=== PATIENT | male | born 1980 | race Caucasian/White ===

== ENCOUNTER 2025-10-27 10:46 | Inpatient (IN) | payer MEDICAID ==
[~2025-10-27] VITALS: Ht 205.7 cm; Wt 143.3 kg
--- NOTE | 2025-10-27 12:38 | ED.PDOC ---
History of Present Illness HPI Comments A 45 YEAR OLD MALE PRESENTS TO THE ED WITH COMPLAINT OF WOUND RECHECK LEFT BKA STUMP WOUND. PATIENT STATES HE HAS A HISTORY OF A LEFT [id number] AMPUTATION DUE TO HIS HISTORY OF DIABETES AND BEGAN TO HAVE A WOUND WITH REDNESS, SWELLING, AND DRAINAGE IN THE AREA FOR THE LAST 5 DAYS. PATIENT IS REQUESTING THAT THIS WOUND BE RECHECKED HE IS CONCERNED IT MAY BE INFECTED. PATIENT DENIES FEVER, CHILLS, SHORTNESS OF BREATH, CHEST PAIN, ABDOMINAL PAIN, NAUSEA, VOMITING, HEADACHE, OR OTHER COMPLAINTS. NO OTHER SYMPTOMS OR MODIFYING FACTORS AT THIS TIME. PATIENT IS ALERT, ORIENTED X 4, AND HAS STEADY GAIT. Chief Complaint: Wound Check Time Seen by MD: 11:14 Reviewed Notes: Nurses Notes, Medications, Allergies Allergies: Coded Allergies: NO KNOWN ALLERGIES (Unverified , 06/13/25) Information Source: Patient Mode of Arrival: Ambulatory Severity: Moderate Timing: Days Duration: Since onset, Days Prehospital treatment: None Medication Refill: For: Other (LEFT BKA STUMP WOUND RECHECK) Past Medical History PAST MEDICAL HISTORY: DM, [place] Surgical History: BKA Family History Family History: Reviewed,noncontributory to illness Social History Smoker: Non-Smoker Alcohol: Denies ETOH Use Drugs: Denies Drug Use Lives In: Home Constitutional: denies: chills, diaphoresis, fatigue, fever, malaise, sweats, weakness, others EENTM: denies: blurred vision, double vision, ear bleeding, ear discharge, ear drainage, ear pain, ear ringing, eye pain, eye redness, hearing loss, mouth pain, mouth swelling, nasal discharge, nose bleeding, nose congestion, nose pain, photophobia, tearing, throat pain, throat swelling, voice changes, others Respiratory: denies: cough, hemoptysis, orthopnea, SOB at rest, shortness of breath, SOB with excertion, stridor, wheezing, others Cardiovascular: denies: chest pain, dizzy spells, diaphoresis, Dyspnea on exertion, edema, irregular heart beat, left arm pain, lightheadedness, palpitations, PND, syncope, others Gastrointestinal: denies: abdomen distended, abdominal pain, blood streaked bowels, constipated, diarrhea, dysphagia, difficulty swallowing, hematemesis, melena, nausea, poor appetite, poor fluid intake, rectal bleeding, rectal pain, vomiting, others Genitourinary: denies: burning, dysuria, flank pain, frequency, hematuria, incontinence, penile discharge, penile sore, pain, testicle pain, testicle swelling, urgency, others Neurological: denies: dizziness, fainting, headache, left sided numbness, left sided weakness, numbness, paresthesia, pre-existing deficit, right sided numbnes s, right sided weakness, seizure, speech problems, tingling, tremors, weakness, others Musculoskeletal: denies: back pain, gout, joint pain, joint swelling, muscle pain, muscle stiffness, neck pain, others Integumetry: reports: lesions, wounds (WOUND RECHECKED OF LEFT BKA STUMP); denies: bruises, change in color, change in hair/nails, dryness, laceration, lumps, rash, others Allergic/Immunocompromised: denies: Difficulty Healing, Frequent Infections, Hives, Itching, others Hematologic/Lymphatic: denies: anemia, blood clots, easy bleeding, easy bruising, swollen glands, others Endocrine: denies: excessive hunger, excessive sweating, excessive thirst, excessive urination, flushing, intolerance to cold, intolerance to heat, unexplained weight gain, unexplained weight loss, others Psychiatric: denies: anxiety, bipolar disorder, depression, hopeless, panic disorder, schizophrenia, sleepless, suicidal, others All Other Systems: Reviewed and Negative Physical Exam General Appearance: No Apparent Distress, Obese HEENT: Normal ENT Inspection, PERRL/EOMI, Pharynx Normal, TMs Normal Neck: Full Range of Motion, Non-Tender, Normal, Normal Inspection Respiratory: Chest Non-Tender, Lungs Clear, No Accessory Muscle Use, No Respiratory Distress, Normal Breath Sounds Cardiovascular: No Edema, No JVD, No Murmur, No Gallop, Normal Peripheral Pu lses, Regular Rate/Rhythm Breast Exam: Deferred Gastrointestinal: No Organomegaly, Non Tender, No Pulsatile Mass, Normal Bowel Sounds, Soft Genitalia: Deferred Pelvic: Deferred Rectal: Deferred Extremities: Decreased range of motion, No calf tenderness, Normal capillary refill, No pedal edema, Swelling (REDNESS, SWELLING, TENDERNESS, AND MILD YELLOW DRAINAGE ON LEFT BKA STUMP REGION.), Tender (AND SWELLING AND REDNESS ON LEFT STUMP REGION. 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 ) Peripheral Pulses: 2+ carotid (R), 2+ carotid (L), 2+ dorsalis pedis (R), 2+ dorsalis pedis (L) Lymphatic: No Adenopathy Was a procedure done? Was a procedure done?: No Differential Dx Considerations may include: WOUND INFECTION, CELLULITIS, ABSCESS, ERYSIPELAS, SOFT TISSUE INFECTION, WOUND RECHECK X-Ray, Labs, Meds, VS Vital Signs Date Time Temp Pulse Resp B/P (MAP) Pulse Ox O2 Delivery O2 Flow Rate FiO2 10/27/25 11:58 98 18 98 Room Air 10/27/25 11:58 98.2 98 18 101/55 (70) 98 98.2 10/27/25 10:47 97.2 98 18 101/55 98 97.2 Lab Test 10/27/25 12:27 Range/Units White Blood Count 6.8 4.4-10.8 10^3/uL Red Blood Count 3.10 L 4.5-5.90 10^6/uL Hemoglobin 8.8 L 13.5-17.5 g/dL Hematocrit 26.3 L 41.0-53.0 % Mean Corpuscular Volume 84.7 80.0-100.0 fL Mean Corpuscular Hemoglobin 28.4 28.0-32.0 pg Mean Corpuscular Hemoglobin Concent 33.5 32.0-36.0 g/dL Red Cell Distribution Width 15.0 H 11.8-14.3 % Platelet Count 465 H 140-450 10^3/uL Mean Platelet Volume 8.4 6.9-10.8 fL Neutrophils (%) (Auto) 68.5 37.0-80.0 % Lymphocytes (%) (Auto) 17.2 10.0-50.0 % Monocytes (%) (Auto) 9.6 0.0-12.0 % Eosinophils (%) (Auto) 4.0 0.0-7.0 % Basophils (%) (Auto) 0.7 0.0-2.0 % Neutrophils # (Auto) 4.6 1.6-8.6 10 ^3/uL Lymphocytes # (Auto) 1.2 0.4-5.4 10 ^3/uL Monocytes # (Auto) 0.6 0-1.3 10 ^3/uL Eosinophils # (Auto) 0.3 0-0.8 10 ^3/uL Basophils # (Auto) 0 0-0.2 10 ^3/uL Nucleated Red Blood Cells 0.0 % Sodium Level 133 L 136-145 mmol/L Potassium Level 5.3 H 3.5-5.1 mmol/L Chloride Level 101 98-107 mmol/L Carbon Dioxide Level 20 20-31 mmol/L Anion Gap 12 5-15 Blood Urea Nitrogen 25 H 9-23 mg/dL Creatinine 1.98 H 0.700-1.30 mg/dL Glomerular Filtration Rate Calc 41 >90 mL/min BUN/Creatinine Ratio 12.6 10.0-20.0 Serum Glucose 237 H 74-106 mg/dL Lactic Acid Level 2.0 0.4-2.0 mmol/L Calcium Level 9.2 8.7-10.4 mg/dL X-Ray, Labs, Meds, VS Comment EXTERNAL MEDICAL RECORDS REVIEWED: [NONE] INDEPENDENT HISTORIANS: [NONE] SOCIAL DETERMINANTS OF HEALTH: [NONE] LABS ORDERED: CBC, BMP, BLOOD CULTURE, LACTIC ACID W/REFLEX, WOUND CULTURE REVIEWED AND INTERPRETED RESULTS: GLUC 237, HGB 8.8, BUN 25, CREA2 1.98 IMAGING ORDERED: NONE TREATMENTS ORDERED: ROCEPHIN 1 G IV, CLINDAMYCIN 900 MG IV AND 0.9 NS 1L IV BOLUS PROCEDURES PERFORMED: NONE CRITICAL CARE TIME: NONE I HAVE DISCUSSED THE PATIENT WITH THE ATTENDING PHYSICIAN DR. ROBERTS AND HE AGREES WITH THE PATIENT'S PLAN OF CARE. UPON MY PHYSICAL EXAMINATION, THE PATIENT HAD REDNESS, SWELLING, AND DRAINAGE NOTED TO HIS LEFT BKA STUMP, CONSISTENT WITH WOUND INFECTION. DUE TO THE PATIENT'S MEDICAL HISTORY AND THE PATIENT'S CLINICAL EXAM FINDINGS, I HAVE DETERMINED THE PATIENT NEEDS TO BE ADMITTED FOR FURTHER TREATMENT AND EVALUATION. THE ON-CALL HOSPITALIST WILL BE CONTACTED FOR ADMISSION IN HIS PATIENT. Images Reviewed?: Images reviewed and evaluated by me Time of 1ST Reevaluation: 15:00 Reevaluation 1ST: Unchanged Patient Education/Counseling: Diagnosis, Treatment Family Education/Counseling: Diagnosis, Treatment SEPSIS Sepsis Screen Date sepsis recognized/suspect: Oct 27, 2025 Time Sepsis recognized/suspect: 1049 Recent Procedure: No On Antibiotic Therapy: No Respiratory Rate >20: No Heart Rate >90: Yes Temp<36 C (96.8 F) or >38.3 C: No SBP <90 or MAP <65 mmHG: No New Acute Mental Status Change: No Is the patient on CPAP, BIPAP,: No Physician Orders Wound Culture W/ Gs (10/27/25 12:06) Blood Culture (10/27/25 12:06) Heplock Iv (10/27/25 ) Clindamycin 900mg Iv (Cleocin Iv) (10/27/25 14:30) Sodium Chloride 0.9% (10/27/25 14:30) Ct L Femur With Wo Contrast (10/27/25 14:39) Vital Signs Date Time Temp Pulse Resp B/P (MAP) Pulse Ox O2 Delivery O2 Flow Rate FiO2 10/27/25 11:58 98 18 98 Room Air 10/27/25 11:58 98.2 98 18 101/55 (70) 98 98.2 10/27/25 10:47 97.2 98 18 101/55 98 97.2 Laboratory Tests Test 10/27/25 12:27 Lactic Acid Level 2.0 mmol/L (0.4-2.0) White Blood Count 6.8 10^3/uL (4.4-10.8) Departure 1 Departure Time of Disposition: 15:00 Impression: Primary Impression: Non-healing wound of amputation stump Additional Impression: Wound infection Disposition: 09 ADMITTED INPATIENT Condition: Serious Critical Care Note Critical Care Time?: No Stability Stability form required: No I personally scribed for LYNNETTE LAMAR ([email or web address]) on 10/27/25 at 12:38. Electronically submitted by Shaka Arthur (EDD). I personally scribed for LYNNETTE LAMAR ([email or web address]) on 10/27/25 at 14:21. Electronically submitted by Shaka Arthur (EDD). LYNNETTE LAMAR Oct 27, 2025 12:38
[2025-10-27 12:57] LABS: Hematocrit 26.3 % (41.0-53.0); Hemoglobin 8.8 g/dL (13.5-17.5); Mean Corpuscular Hemoglobin 28.4 pg (28.0-32.0); Mean Corpuscular Volume 84.7 fL (80.0-100.0); Nucleated Red Blood Cells % 0.0 %
[2025-10-27 13:04] LABS: Chloride 101 mmol/L (98-107)
[2025-10-27 13:05] LABS: Anion Gap 12 (5-15); Carbon Dioxide 20 mmol/L (20-31); Potassium 5.3 mmol/L (3.5-5.1); Sodium 133 mmol/L (136-145)
[2025-10-27 13:06] LABS: Calcium 9.2 mg/dL (8.7-10.4)
[2025-10-27 13:10] LABS: BUN/Creatinine Ratio 12.6 (10.0-20.0)
[2025-10-27 13:13] LABS: Blood Urea Nitrogen 25 mg/dL (9-23); Glucose 237 mg/dL (74-106)
[2025-10-27] MEDS: CLINDAMYCIN 900MG IV 50 ML IV ONE (14:30)
[2025-10-27] MEDS ORDERED: ACETAMINOPHEN 325 MG TAB PO PRN (14:45)
[2025-10-27] MEDS ORDERED: MORPHINE SULFATE INJ 2 MG/ml SYRG IV PRN (14:45)
[2025-10-27] MEDS ORDERED: HYDROcodone-ACET 5/325MG TAB PO PRN (14:45)
[2025-10-27] MEDS ORDERED: DEXTROSE (50%) 50ML SYRG IV PRN (14:45)
[2025-10-27] MEDS ORDERED: ONDANSETRON HCL 4 MG/2 ML VIAL IV PRN (14:45)
[2025-10-27] MEDS: SODIUM CHLORIDE 0.9% 1,000 ML IV ONE (15:45)
[2025-10-27] MEDS: IOHEXOL 300 MG/ML 100ML BOTTLE IJ ONE (15:51)
--- NOTE | 2025-10-27 15:58 | DVH ---
EXAM: CT LT LOWER EXTREMITY W CONTRAS INDICATION: left stump swelling TECHNIQUE: Axial images of left lower extremity with contrast have been obtained along with coronal and sagittal reformatted images. All CT scans at this facility use dose modulation, iterative reconstruction, and/or weight based dosing when appropriate to reduce radiation dose to as low as reasonably achievable. COMPARISON: XY L KNEE 2V XRAY on DOS: 10/19/25 FINDINGS: BONES: [id number] amputation area deep soft tissue ulceration along the posterior aspect of the distal stump with underlying phlegmon tracking to the osseous distal cortical surface of the distal stump. Question subsequent osseous erosion in the area of concern which may reflect osteomyelitis (series 607, image 106). Vascular calcifications. MUSCLES: Fat containing left inguinal hernia. Fatty atrophy along the proximal calf musculature. JOINT SPACES: Small left knee joint effusion. OTHER: Minimal circumferential bladder wall thickening. Likely reactive left inguinal lymph nodes. IMPRESSION: 1. Deep soft tissue ulceration along the posterior aspect of the distal stump with underlying phlegmon tracking to the osseous distal cortical surface of the distal stump. 2. Question subsequent osseous erosion in the area of concern which may reflect osteomyelitis.
[2025-10-27] MEDS: SODIUM ZIRCONIUM CYCL 10 GM PAK PO ONE (16:14)
--- NOTE | 2025-10-27 16:17 | DVHHP2 ---
History of Present Illness Reason for Visit: Swelling History of Present Illness 45-year-old male presents for evaluation of left lower extremity stump swelling with open wound. Patient reports noticing the wound initially five days ago with increased redness and swelling. Denies any fever or chills. No other acute complaints. Past Medical History Hypertension, chronic kidney disease, diabetes mellitus Past Surgical History Left BKA Family History Noncontributory Smoke: No ALCOHOL: none Drugs: None Lives: with Family Review of Systems Review of Systems Review of systems are currently negative addressed in HPI. Chest x-ray Allergies: Coded Allergies: NO KNOWN ALLERGIES (Unverified , 06/13/25) Medications Current Medications Medications Dose Ordered Sig/Danilo Route Start Time Stop Time Status Last Admin Dose Admin Clindamycin Phosphate 50 ml @ 50 mls/hr Q8HR IV 10/27/25 22:00 Atorvastatin Calcium 40 mg HS PO 10/27/25 22:00 Carvedilol 6.25 mg Q12HR PO 10/27/25 22:00 Ticagrelor 90 mg BID PO 10/27/25 22:00 Gabapentin 400 mg BID PO 10/27/25 22:00 Nifedipine 90 mg DAILY PO 10/28/25 10:00 Diagnostic Test (Pha) 1 strip ACHS 10/27/25 17:00 Insulin Human Regular ACHS SC 10/27/25 17:00 Dextrose 50 ml UD PRN IV 10/27/25 14:45 Acetaminophen/ Hydrocodone Bitart 1 tab Q4HP PRN PO 10/27/25 14:45 Ondansetron HCl 4 mg Q4HP PRN IV 10/27/25 14:45 Acetaminophen 650 mg Q6HP PRN PO 10/27/25 14:45 Morphine Sulfate 2 mg Q6HPRN PRN IV 10/27/25 14:45 Exam Vital Signs Vital Signs Date Time Temp Pulse Resp B/P (MAP) Pulse Ox O2 Delivery O2 Flow Rate FiO2 10/27/25 15:01 98.7 94 16 107/70 (82) 97 98.7 10/27/25 11:58 Room Air Labs/Xrays Labs Test 10/27/25 12:27 Range/Units White Blood Count 6.8 4.4-10.8 10^3/uL Red Blood Count 3.10 L 4.5-5.90 10^6/uL Hemoglobin 8.8 L 13.5-17.5 g/dL Hematocrit 26.3 L 41.0-53.0 % Mean Corpuscular Volume 84.7 80.0-100.0 fL Mean Corpuscular Hemoglobin 28.4 28.0-32.0 pg Mean Corpuscular Hemoglobin Concent 33.5 32.0-36.0 g/dL Red Cell Distribution Width 15.0 H 11.8-14.3 % Platelet Count 465 H 140-450 10^3/uL Mean Platelet Volume 8.4 6.9-10.8 fL Neutrophils (%) (Auto) 68.5 37.0-80.0 % Lymphocytes (%) (Auto) 17.2 10.0-50.0 % Monocytes (%) (Auto) 9.6 0.0-12.0 % Eosinophils (%) (Auto) 4.0 0.0-7.0 % Basophils (%) (Auto) 0.7 0.0-2.0 % Neutrophils # (Auto) 4.6 1.6-8.6 10 ^3/uL Lymphocytes # (Auto) 1.2 0.4-5.4 10 ^3/uL Monocytes # (Auto) 0.6 0-1.3 10 ^3/uL Eosinophils # (Auto) 0.3 0-0.8 10 ^3/uL Basophils # (Auto) 0 0-0.2 10 ^3/uL Nucleated Red Blood Cells 0.0 % Sodium Level 133 L 136-145 mmol/L Potassium Level 5.3 H 3.5-5.1 mmol/L Chloride Level 101 98-107 mmol/L Carbon Dioxide Level 20 20-31 mmol/L Anion Gap 12 5-15 Blood Urea Nitrogen 25 H 9-23 mg/dL Creatinine 1.98 H 0.700-1.30 mg/dL Glomerular Filtration Rate Calc 41 >90 mL/min BUN/Creatinine Ratio 12.6 10.0-20.0 Serum Glucose 237 H 74-106 mg/dL Lactic Acid Level 2.0 0.4-2.0 mmol/L Calcium Level 9.2 8.7-10.4 mg/dL SEPSIS Sepsis Screen Date sepsis recognized/suspect: Oct 27, 2025 Time Sepsis recognized/suspect: 1049 Recent Procedure: No On Antibiotic Therapy: No Respiratory Rate >20: No Heart Rate >90: Yes Temp<36 C (96.8 F) or >38.3 C: No SBP <90 or MAP <65 mmHG: No New Acute Mental Status Change: No Is the patient on CPAP, BIPAP,: No Physician Orders Wound Culture W/ Gs (10/27/25 12:06) Blood Culture (10/27/25 12:06) Heplock Iv (10/27/25 ) Clindamycin 600mg Iv (Cleocin Iv) (10/27/25 22:00) Atorvastatin (Lipitor) (10/27/25 22:00) Carvedilol Tablet (Coreg Tablet) (10/27/25 22:00) Ticagrelor (Brilinta) (10/27/25 22:00) Gabapentin Capsule (Neurontin Capsule) (10/27/25 22:00) Nifedipine Er (Procardia Xl (Time-Releas (10/28/25 10:00) Consistent Carb(Ccho)Diabetes (10/27/25 Dinner) Basic Metabolic Panel (10/28/25 04:00) Glucose Blood (Accu-Chek Comfort Curve T (10/27/25 17:00) Insulin R (Human) (Insulin R) (10/27/25 17:00) Dextrose 50% Syringe (10/27/25 14:45) Admit (10/27/25 14:42) Hydrocodone-Acet 5/325mg Tab ([place] 5/32 (10/27/25 14:45) Ondansetron Hcl (Zofran) (10/27/25 14:45) Complete Blood Count (10/28/25 04:00) Condition: Stable (10/27/25 14:42) Acetaminophen Tablet (Tylenol Tablet) (10/27/25 14:45) Bedrest With Bathroom Privileg (10/27/25 14:42) Morphine Sulfate Injection (10/27/25 14:45) Lt Lower Extremity W Contras (10/27/25 14:39) Ceftriaxone Ivpb Rocephin (10/28/25 09:00) * Orthopedic Consult (10/27/25 16:12) Vital Signs Date Time Temp Pulse Resp B/P (MAP) Pulse Ox O2 Delivery O2 Flow Rate FiO2 10/27/25 15:01 98.7 94 16 107/70 (82) 97 98.7 10/27/25 11:58 98 18 98 Room Air 10/27/25 11:58 98.2 98 18 101/55 (70) 98 98.2 10/27/25 10:47 97.2 98 18 101/55 98 97.2 Laboratory Tests Test 10/27/25 12:27 Lactic Acid Level 2.0 mmol/L (0.4-2.0) White Blood Count 6.8 10^3/uL (4.4-10.8) Medications Medications Dose Ordered Sig/Danilo Route Start Time Stop Time Status Last Admin Dose Admin Sodium Chloride 1,000 ml @ 1,000 mls/hr Q1H ONCE IV 10/27/25 14:30 10/27/25 15:29 DC 10/27/25 15:45 1,000 MLS/HR Assessment/Plan Assessment/Plan Assessment Left stump cellulitis Rule out osteomyelitis Diabetes mellitus Chronic kidney disease Hypertension Plan Admit the patient to [facility] [place] Rocephin/clindamycin Orthopedic consultation CT of the left stump pending Resume home medication Pain management Continue treatment per orders. Plan discussed with: Patient My Orders Orders - KACY POTTERCNDaisha Procedure Category Date Status Time Clindamycin 600mg Iv PHA 10/27/25 In Process (Cleocin Iv) 22:00 Atorvastatin (Lipitor) PHA 10/27/25 In Process 22:00 Carvedilol Tablet PHA 10/27/25 In Process (Coreg Tablet) 22:00 Ticagrelor (Brilinta) PHA 10/27/25 In Process 22:00 Gabapentin Capsule PHA 10/27/25 In Process (Neurontin Capsule) 22:00 Nifedipine Er PHA 10/28/25 In Process (Procardia Xl 10:00 Consistent DIET 10/27/25 Transmitted Carb(Ccho)Diabetes Dinner Basic Metabolic Panel LAB 10/28/25 Verified 04:00 Glucose Blood PHA 10/27/25 In Process (Accu-Chek Comfort 17:00 Insulin R (Human) PHA 10/27/25 In Process (Insulin R) 17:00 Dextrose 50% Syringe PHA 10/27/25 In Process 14:45 Admit ADMIT 10/27/25 Transmitted 14:42 Hydrocodone-Acet PHA 10/27/25 In Process 5/325mg Tab ([place] 14:45 Ondansetron Hcl PHA 10/27/25 In Process (Zofran) 14:45 Complete Blood Count LAB 10/28/25 Verified 04:00 Condition: Stable JAY 10/27/25 In Process 14:42 Acetaminophen Tablet PHA 10/27/25 In Process (Tylenol Tablet) 14:45 Bedrest With Bathroom JAY 10/27/25 In Process Privileg 14:42 Morphine Sulfate PHA 10/27/25 In Process Injection 14:45 Lt Lower Extremity W CT 10/27/25 Resulted Contras 14:39 Ceftriaxone Ivpb PHA 10/28/25 Verified Rocephin 09:00 * Orthopedic Consult CONS 10/27/25 Verified 16:12 Date of Service: Oct 27, 2025 Billing Provider: KACY POTTER Common Visit Codes: [id number] INP/OBS CARE (MOD) KACY POTTER Oct 27, 2025 16:17
[2025-10-27 16:42] VITALS: BP 125/78; PULSE 102; RESP 20; TEMP 98.3; O2SAT 99
[2025-10-27] MEDS: ACCU-CHEK COMFORT CURVE STRIP VI SCH (17:00)
[2025-10-27] MEDS: MORPHINE SULFATE 4 MG/ML SYR/VIAL IV PRN (17:30)
[2025-10-27] MEDS: InsuLIN REG 1unit/0.01ml Soln (100units/ml) SC SCH (18:05)
[2025-10-27 20:00] VITALS: RESP 19
[2025-10-27 21:00] VITALS: BP 117/86; PULSE 100; RESP 18; TEMP 98.3; O2SAT 98
[2025-10-27] MEDS: CARVEDILOL 3.125 MG TAB PO SCH (21:33)
[2025-10-27] MEDS: ATORVASTATIN 20 MG TAB PO SCH (21:33)
[2025-10-27] MEDS: TICAGRELOR 90 MG TAB PO SCH (21:33)
[2025-10-27] MEDS: CLINDAMYCIN 600MG IV 50 ML IV SCH (21:33)
[2025-10-27] MEDS: GABAPENTIN 400 MG CAP PO SCH (21:33)
[2025-10-27] MEDS: KETOROLAC TROMETH 30 MG/ML 1ML VIAL IV ONE (22:18)
[2025-10-28] VITALS (8 sets, daily range): BP systolic 115–156; BP diastolic 76–94; PULSE 72–103; RESP 15–19; TEMP 98.1–99.8; O2SAT 94–99
[2025-10-28 07:15] LABS: Chloride 104 mmol/L (98-107); Hematocrit 25.9 % (41.0-53.0); Hemoglobin 8.5 g/dL (13.5-17.5); Mean Corpuscular Hemoglobin 27.8 pg (28.0-32.0); Mean Corpuscular Volume 84.1 fL (80.0-100.0); Nucleated Red Blood Cells % 0.1 %; Potassium 4.6 mmol/L (3.5-5.1); Sodium 137 mmol/L (136-145)
[2025-10-28 07:16] LABS: Anion Gap 13 (5-15); Calcium 9.0 mg/dL (8.7-10.4)
[2025-10-28 07:19] LABS: Carbon Dioxide 20 mmol/L (20-31)
[2025-10-28 07:21] LABS: BUN/Creatinine Ratio 12.8 (10.0-20.0); Blood Urea Nitrogen 19 mg/dL (9-23)
[2025-10-28 07:22] LABS: Glucose 229 mg/dL (74-106)
--- NOTE | 2025-10-28 12:44 | DVHINCON2 ---
Date of service: Oct 28, 2025 History of Present Illness 45-year-old male with a history of diabetes status post left BKA with chronic recurrent infections of the stump admitted secondary to worsening redness and swelling. Patient reports significant decrease in his swelling of the leg and currently denies any pain in the area. Past Medical History Diabetes. Hypertension. Chronic kidney disease. Past Surgical History Left BKA Family History: FH: multiple sclerosis G8 MOTHER Family History Noncontributory Social History Denies alcohol, tobacco, IV drug use Allergies: Coded Allergies: NO KNOWN ALLERGIES (Unverified , 06/13/25) Current Medications Current Medications Medications (Trade) Dose Ordered Sig/Danilo Route PRN Reason Start Time Stop Time Status Last Admin Clindamycin Phosphate 50 ml @ 50 mls/hr Q8HR IV 10/27/25 22:00 10/28/25 05:43 Atorvastatin Calcium (Lipitor) 40 mg HS PO 10/27/25 22:00 10/27/25 21:33 Carvedilol (Coreg Tablet) 6.25 mg Q12HR PO 10/27/25 22:00 10/28/25 10:47 Ticagrelor (Brilinta) 90 mg BID PO 10/27/25 22:00 10/28/25 10:46 Gabapentin (Neurontin Capsule) 400 mg BID PO 10/27/25 22:00 10/28/25 10:48 Nifedipine (Procardia Xl (Time-Release)) 90 mg DAILY PO 10/28/25 10:00 10/28/25 10:48 Diagnostic Test (Pha) (Accu-Chek Comfort Curve T) 1 strip ACHS 10/27/25 17:00 10/28/25 12:02 Insulin Human Regular (InsuLIN R) ACHS SC 10/27/25 17:00 10/28/25 12:02 Dextrose 50 ml UD PRN IV Blood Sugar LESS THAN 60 10/27/25 14:45 Acetaminophen/ Hydrocodone Bitart ([place] 5/325MG Tab) 1 tab Q4HP PRN PO MODERATE PAIN (4-6 PAIN SCALE) 10/27/25 14:45 Ondansetron HCl (Zofran) 4 mg Q4HP PRN IV NAUSEA / VOMITING 10/27/25 14:45 Acetaminophen (Tylenol Tablet) 650 mg Q6HP PRN PO PAIN SCALE 1-3 OR TEMP>100.4 10/27/25 14:45 Morphine Sulfate 2 mg Q6HPRN PRN IV SEVERE PAIN (7-10 PAIN SCALE) 10/27/25 14:45 10/27/25 17:19 DC Ceftriaxone Sodium 50 ml @ 100 mls/hr DAILY@09 IV 10/28/25 09:00 10/28/25 10:48 Morphine Sulfate 2 mg Q6HPRN PRN IV SEVERE PAIN (7-10 PAIN SCALE) 10/27/25 17:30 10/28/25 12:04 Vital Signs Vital Signs Date Time Temp Pulse Resp B/P (MAP) Pulse Ox O2 Delivery O2 Flow Rate FiO2 10/28/25 12:28 98.5 102 19 154/85 (108) 97 98.5 10/28/25 08:00 Room Air* 0 21 Physical Exam GEN: Age-appropriate male in no acute distress. Alert. HEENT: Normocephalic atraumatic. Moist mucous membranes. Anicteric sclerae. CV: RRR Respiratory: CTAB ABD: Soft. Nontender nondistended Left BKA stump: There is a small 1 cm eschar at the tip of the BKA stump without erythema or fluctuance or drainage. Nontender. CT of the left lower extremity: Deep soft tissue ulceration along the posterior aspect of the distal stump with underlying phlegmon tracking to the osseous distal cortical surface of the distal stump. Possible osteomyelitis. Labs/Diagnostic Data Labs Test 10/28/25 11:46 10/28/25 06:20 10/27/25 12:27 Range/Units POC Glucose 222 H 70-106 mg/dl White Blood Count 6.1 4.4-10.8 10^3/uL Red Blood Count 3.07 L 4.5-5.90 10^6/uL Hemoglobin 8.5 L 13.5-17.5 g/dL Hematocrit 25.9 L 41.0-53.0 % Mean Corpuscular Volume 84.1 80.0-100.0 fL Mean Corpuscular Hemoglobin 27.8 L 28.0-32.0 pg Mean Corpuscular Hemoglobin Concent 33.0 32.0-36.0 g/dL Red Cell Distribution Width 15.0 H 11.8-14.3 % Platelet Count 387 140-450 10^3/uL Mean Platelet Volume 8.1 6.9-10.8 fL Neutrophils (%) (Auto) 65.3 37.0-80.0 % Lymphocytes (%) (Auto) 20.0 10.0-50.0 % Monocytes (%) (Auto) 9.9 0.0-12.0 % Eosinophils (%) (Auto) 4.1 0.0-7.0 % Basophils (%) (Auto) 0.7 0.0-2.0 % Neutrophils # (Auto) 4.0 1.6-8.6 10 ^3/uL Lymphocytes # (Auto) 1.2 0.4-5.4 10 ^3/uL Monocytes # (Auto) 0.6 0-1.3 10 ^3/uL Eosinophils # (Auto) 0.2 0-0.8 10 ^3/uL Basophils # (Auto) 0 0-0.2 10 ^3/uL Nucleated Red Blood Cells 0.1 % Sodium Level 137 136-145 mmol/L Potassium Level 4.6 3.5-5.1 mmol/L Chloride Level 104 98-107 mmol/L Carbon Dioxide Level 20 20-31 mmol/L Anion Gap 13 5-15 Blood Urea Nitrogen 19 9-23 mg/dL Creatinine 1.48 H 0.700-1.30 mg/dL Glomerular Filtration Rate Calc 59 >90 mL/min BUN/Creatinine Ratio 12.8 10.0-20.0 Serum Glucose 229 H 74-106 mg/dL Hemoglobin A1c 8.4 H <5.7 % A1C Calcium Level 9.0 8.7-10.4 mg/dL Lactic Acid Level 2.0 0.4-2.0 mmol/L Microbiology Date/Time Source Procedure Growth Status 10/27/25 00:00 Knee Left Gram Stain - Final Resulted 10/27/25 00:00 Knee Left Wound Culture - Preliminary Resulted Assessment 1. Left BKA stump improving on antibiotics without drainable abscess Plan/Recommendation 1. Patient is showing clinical improvement. I recommend continuing with antibiotics at this time. No indication for surgical drainage at this time. Plan discussed with: Patient FRANKLIN BENSON MD Oct 28, 2025 12:44
--- NOTE | 2025-10-28 15:59 | DVHPNRES ---
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 And denies any recent history of fall ,trauma or MVA. Denies any fever, cough, SOB, headache, dyspnea, abdominal pain, dysuria or any focal weakness. Wheelchair and occasional walker for ambulation at home. Past medical history: As above Surgical history: Left BKA 2069 Family history: Nothing contributory Personal history: Denies any EtOH or alcohol use Allergy: No known allergy PCP: Dr. Betancourt. Patient seen and examined at bedside today Patient denies any acute distress Surgery consult appreciated. Objective vital signs Vital Sign Date Time Temp Pulse Resp B/P (MAP) Pulse Ox O2 Delivery O2 Flow Rate FiO2 10/28/25 12:28 98.5 102 19 154/85 (108) 97 98.5 10/28/25 08:00 Room Air* 0 21 Total Intake and Output 10/27/25 10/27/25 10/28/25 15:00 23:00 07:00 Intake Total 0 ml 1200 ml Output Total 2175 ml Balance 0 ml -975 ml medications Current Medications Medications Dose Ordered Sig/Danilo Route Start Time Stop Time Status Last Admin Dose Admin Clindamycin Phosphate 50 ml @ 50 mls/hr Q8HR IV 10/27/25 22:00 10/28/25 13:23 50 MLS/HR Atorvastatin Calcium 40 mg HS PO 10/27/25 22:00 10/27/25 21:33 40 MG Carvedilol 6.25 mg Q12HR PO 10/27/25 22:00 10/28/25 10:47 6.25 MG Ticagrelor 90 mg BID PO 10/27/25 22:00 10/28/25 10:46 90 MG Gabapentin 400 mg BID PO 10/27/25 22:00 10/28/25 10:48 400 MG Nifedipine 90 mg DAILY PO 10/28/25 10:00 10/28/25 10:48 90 MG Diagnostic Test (Pha) 1 strip ACHS 10/27/25 17:00 10/28/25 12:02 1 STRIP Insulin Human Regular ACHS SC 10/27/25 17:00 10/28/25 12:02 4 UNITS Dextrose 50 ml UD PRN IV 10/27/25 14:45 Acetaminophen/ Hydrocodone Bitart 1 tab Q4HP PRN PO 10/27/25 14:45 Ondansetron HCl 4 mg Q4HP PRN IV 10/27/25 14:45 Acetaminophen 650 mg Q6HP PRN PO 10/27/25 14:45 Ceftriaxone Sodium 50 ml @ 100 mls/hr DAILY@09 IV 10/28/25 09:00 10/28/25 10:48 100 MLS/HR Morphine Sulfate 2 mg Q6HPRN PRN IV 10/27/25 17:30 10/28/25 12:04 2 MG Examination GEN: Age-appropriate male in no acute distress. Alert. HEENT: Normocephalic atraumatic. Moist mucous membranes. Anicteric sclerae. CV: RRR Respiratory: CTAB ABD: Soft. Nontender nondistended Left BKA stump: There is a approximately 1.5 cm eschar at the tip of the left BKA stump without fluctuance or drainage. laboratory and microbiology Laboratory Tests 10/28/25 06:20 Test 10/28/25 06:20 Range/Units Serum Glucose 229 H 74-106 mg/dL Microbiology Date/Time Source Procedure Growth Status 10/27/25 12:36 Blood Blood Culture - Preliminary NO GROWTH AFTER 24 HOURS OF INCUBATION. Resulted 10/27/25 00:00 Knee Left Gram Stain - Final Resulted 10/27/25 00:00 Knee Left Wound Culture - Preliminary Resulted Problem List/Assessment/Plan Problem List/Assessment/Plan Left BKA stump cellulitis Rule out osteomyelitis History of Charcot joint status post left BKA Lactic acid 2.0 Blood culture preliminary [id number] x 2 shows no growth Wound Culture preliminary left BKA stump: Gram-positive cocci in pair and chain-Staphylococcus aureus Started empiric antibiotic ceftriaxone and clindamycin Monitor labs Pain management Surgery consult appreciated and recommended continue antibiotic no surgical intervention at this time. Type 2 diabetes mellitus with hyperglycemia Diabetes mellitus with neuropathy Hyperlipidemia with diabetes Gabapentin Atorvastatin Hemoglobin A1c 8.4 Basal bolus insulin Insulin sliding scale Monitor blood sugar MARILYNN and CKD likely vasomotor nephropathy Hypertensive heart disease with possible systolic/diastolic heart failure Questionable coronary artery disease Blood pressure control targeted less than 130/80 Ticagrelor Nifedipine Losartan Carvedilol Hyponatremia Hyperkalemia Avoid nephrotoxic drugs IVF BMP Anemia of chronic disease Hemoglobin 8.5, HCT 25.9, MCV 84.1, RDW 15.0 No active signs symptoms of bleeding Possible major depressive disorder Sertraline Thrombocytosis likely hemoconcentration/reactive Initial CBC history of platelet 465 CBC Diet: Carbohydrate consistent DVT prophylaxis: Heparin Goals of care discussed. 21 minute spent with patient. Code status. Case discussed with Dr. Brown Plan discussed with: Patient, Other (Nurse) Visit Coding STANDARD RES Billing Provider: MIGEL BROWN MD Date of Service if different f: Oct 28, 2025 Common Visit Codes: [id number] INP/OBS CARE(HIGH) OLYA MCGOWAN RESIDENT Oct 28, 2025 15:59 MIGEL BROWN MD Nov 07, 2025 10:22
[2025-10-28] MEDS: LOSARTAN POTASSIUM 50 MG TAB PO ONE (17:13)
[2025-10-28] MEDS: INSULIN LISPRO (HUMAN) 100 UNITS/ML ML SC SCH (17:13)
[2025-10-28] MEDS: INSULIN LANTUS (GLARGINE) 1 /0.01ml (100units/ml) SC SCH (21:07)
[2025-10-28] MEDS: CARVEDILOL 3.125 MG TAB PO SCH (21:08)
[2025-10-28] MEDS: HEPARIN SODIUM (PORCINE) 5000 UNITS/ML 1ML VIAL SC SCH (21:09)
[2025-10-29] VITALS (9 sets, daily range): BP systolic 97–132; BP diastolic 56–73; PULSE 60–94; RESP 16–18; TEMP 97.2–98.6; O2SAT 94–99
[2025-10-29 05:32] LABS: Hematocrit 24.6 % (41.0-53.0); Hemoglobin 8.3 g/dL (13.5-17.5); Mean Corpuscular Hemoglobin 28.2 pg (28.0-32.0); Mean Corpuscular Volume 83.6 fL (80.0-100.0); Nucleated Red Blood Cells % 0.0 %
[2025-10-29 05:56] LABS: Albumin 3.9 g/dL (3.2-4.8); Alkaline Phosphatase 67 U/L (46-116); Anion Gap 12 (5-15); BUN/Creatinine Ratio 13.2 (10.0-20.0); Blood Urea Nitrogen 18 mg/dL (9-23); Calcium 9.0 mg/dL (8.7-10.4); Carbon Dioxide 23 mmol/L (20-31); Chloride 103 mmol/L (98-107); Magnesium 2.1 mg/dL (1.6-2.6); Potassium 4.3 mmol/L (3.5-5.1); Sodium 138 mmol/L (136-145); Total Protein 7.4 g/dL (5.7-8.2)
[2025-10-29 06:04] LABS: Alanine Aminotransferase < 9 U/L (7-40); Bilirubin, Total 0.2 mg/dL (0.2-1.0); Glucose 162 mg/dL (74-106)
[2025-10-29] MEDS: SERTRALINE HCL 50 MG TAB PO SCH (09:20)
[2025-10-29] MEDS: LOSARTAN POTASSIUM 50 MG TAB PO SCH (09:21)
[2025-10-29] MEDS ORDERED: VANCOMYCIN PER PHARMACY 0 MG IV SCH (13:15)
--- NOTE | 2025-10-29 13:43 | DVHPNRES ---
Progress Note Date Seen: Oct 29, 2025 Resident Creating Document: ANIVAL COSBY RESIDENT Medical Necessity Reason Pt with a Central, PICC or Fol: No Subjective Review of Systems Mr. Marcus is a 45-year-old male with past medical history of HTN, CKD, type diabetes mellitus, Charcot Joint s/p left BKA in 2017 at [facility], who came to ER with a complaint of left lower extremity stump swelling, erythematous, and open wound with drainage for a week. He denied recent history of trauma, fall, fever, nausea, vomiting, headache, dyspnea, shortness of breath, abdominal pain, dysuria or any focal weakness. Patient utilizes wheelchair and occasional walker for ambulation at home. On evaluation in the ED, the patient was afebrile, normocardic, normotensive, saturating adequately on room air. Initial labs are significant for normocytic anemia, hyponatremia, hyperkalemia, elevated creatinine, and hyperglycemia. Lower extremity CT is significant for deep soft tissue ulceration along the posterior aaspect of the distal stump with underlying phlegmon tracking to the osseous distal cortical surface of the distal stump, question of subsequent osseous erosion in the area of concern which may reflect osteomyelitis. Wound care was consulted and wound cultures were taken. He was started on IV antibiotics and admitted for further work up and management. Past medical history: As above Surgical history: Left BKA 2017 Family history: Nothing contributory Personal history: Denies any EtOH or alcohol use Allergy: No known allergy PCP: Dr. Betancourt. 10/29: Patient seen at bedside today. He states he is well, continues to have some pain in his stump. He is afebrile, normocardic, normotensive, saturating adequately on room air. Patient was evaluated by Dr. Solano who states there is no indication for surgical drainage at this time, recommends continued management with antibiotics. Wound cultures are growing MRSA, vancomycin has been initiated. Objective vital signs Vital Sign Date Time Temp Pulse Resp B/P (MAP) Pulse Ox O2 Delivery O2 Flow Rate FiO2 10/29/25 10:19 70 120/72 10/29/25 09:52 18 10/29/25 08:59 97.7 99 97.7 10/29/25 08:00 Room Air* 0 21 Total Intake and Output 10/28/25 10/28/25 10/29/25 15:00 23:00 07:00 Intake Total 100 ml 880 ml 600 ml Output Total 3200 ml Balance 100 ml -2320 ml 600 ml medications Current Medications Medications Dose Ordered Sig/Danilo Route Start Time Stop Time Status Last Admin Dose Admin Atorvastatin Calcium 40 mg HS PO 10/27/25 22:00 10/28/25 21:08 40 MG Ticagrelor 90 mg BID PO 10/27/25 22:00 10/29/25 09:19 90 MG Gabapentin 400 mg BID PO 10/27/25 22:00 10/29/25 09:21 400 MG Nifedipine 90 mg DAILY PO 10/28/25 10:00 10/29/25 09:20 90 MG Diagnostic Test (Pha) 1 strip ACHS 10/27/25 17:00 10/29/25 11:52 1 STRIP Insulin Human Regular ACHS SC 10/27/25 17:00 10/29/25 11:53 2 UNITS Dextrose 50 ml UD PRN IV 10/27/25 14:45 Acetaminophen/ Hydrocodone Bitart 1 tab Q4HP PRN PO 10/27/25 14:45 Ondansetron HCl 4 mg Q4HP PRN IV 10/27/25 14:45 Acetaminophen 650 mg Q6HP PRN PO 10/27/25 14:45 Ceftriaxone Sodium 50 ml @ 100 mls/hr DAILY@09 IV 10/28/25 09:00 10/29/25 09:19 100 MLS/HR Morphine Sulfate 2 mg Q6HPRN PRN IV 10/27/25 17:30 10/29/25 09:22 2 MG Sertraline HCl 25 mg DAILY PO 10/29/25 10:00 10/29/25 09:20 25 MG Losartan Potassium 50 mg DAILY PO 10/29/25 10:00 10/29/25 09:21 50 MG Carvedilol 6.25 mg Q12HR PO 10/28/25 22:00 10/29/25 09:19 6.25 MG Insulin Glargine 10 units HS SC 10/28/25 22:00 10/28/25 21:07 10 UNITS Insulin Human Lispro 3 units AC SC 10/28/25 17:00 10/29/25 11:53 3 UNITS Heparin Sodium (Porcine) 5,000 units Q12HR SC 10/28/25 22:00 10/29/25 09:20 5,000 UNITS Vancomycin HCl 0 ml @ 0 mls/hr PER PHARMACY IV 10/29/25 13:15 UNV Examination General: The patient alert and oriented in person place and time. Patient following commands HEENT: Normocephalic, atraumatic, normal reactive pupils, EOM intact, pink conjunctiva, pink moist mucous membrane Respiratory/pulmonary: Bilateral chest expansion, no pain on palpation of chest wall, clear lungs bilaterally, vesicular murmurs present in almost all lung glass, no associated crackles or wheezes. Cardiovascular: Normal RRR, normal S1 and S2, no murmurs Abdomen: Abdomen nondistended, normal bowel sounds, soft, there is no pain to palpation in any of the abdominal quadrants, no palpable masses. Extremities: acquired absence of left leg below the knee, wound on distal tip of stump observed, there is a circular wound observed with a yellow center and surrounding erythema, there is no suppuration or purulent drainage noted at this time, no edema or trauma noted at on exam of right lower extremity, pulses are palpable in bilateral upper extremities and in right lower extremity Skin: As above, there is no sacral edema present at this time. Neurological: Intact cranial nerves with no focal neurologic deficits laboratory and microbiology Laboratory Tests 10/29/25 04:28 Test 10/29/25 04:28 Range/Units Serum Glucose 162 H 74-106 mg/dL Microbiology Date/Time Source Procedure Growth Status 10/27/25 12:36 Blood Blood Culture - Preliminary NO GROWTH AFTER 48 HOURS OF INCUBATION. Resulted 10/27/25 00:00 Knee Left Gram Stain - Final Resulted 10/27/25 00:00 Wound Culture - Preliminary Methicillin Resistant S.aureus Resulted Problem List/Assessment/Plan Problem List/Assessment/Plan Assessment and Plan: Left BKA stump cellulitis Rule out osteomyelitis History of Charcot joint status post left BKA in 2017 -Lactic acid 2.0 -Blood culture preliminary 10/27/2025: Show no growth at 48 hours -Wound Culture preliminary left BKA stump: MRSA -Ceftriaxone 1 g IV , discontinued -Clindamycin, discontinued -Vancomycin per pharmacy protocol initiated (10/29-) -Monitor labs -Pain management -Per General Surgery: Continue antibiotic no surgical intervention at this time. Type 2 diabetes mellitus with hyperglycemia, HbA1c 8.4 Diabetes mellitus with neuropathy - Gabapentin 300 mg PO TID - Lantus 10 U SC HS - Lispro 3 U SC AC - Monitor blood sugar Hyperlipidemia - Atorvastatin 40 mg PO daily MARILYNN and CKD likely vasomotor nephropathy - Monitor renal function - Avoid nephrotoxic drugs - Nephrology has been consulted Mild hyponatremia - Monitor sodium levels Hyperkalemia, resolved - Monitor potassium levels Chronic HFrEF, not in exacerbation Hypertensive heart disease - Echocardiogram 02/06/2025: Global LV hypokinesis, LEVF 25%, normal valves, no effusion - Coreg 6.25 mg PO q 12 hours - Losartan 50 mg PO daily - Nifedipine 90 mg PO daily Coronary Artery Disease s/p PCI 4 CRISTA in 04/20/2025 - Angiogram 04/20/2025: Stenting of circumflex and RCA - Blood pressure control targeted less than 130/80 - Ticagrelor 90 mg PO BID - Aspirin 81 mg PO daily DVT prophylaxis: Heparin q12 hours GI prophylaxis: Not indicated Nutrition: Consistent carb Goals of care discussed with the patient for over 27 minutes. FULL CODE. Plan discussed with patient's nurse, Nikki. Cased discussed with Dr. Kim Plan discussed with: Patient, Other (Nurse (Nikki)) My Orders My Orders Orders - ANIVAL COSBY RESIDENT Procedure Category Date Status Time Urinalysis LAB 10/29/25 Logged 08:32 Drug Screen LAB 10/29/25 Logged 08:32 Vancomycin Per PHA 10/29/25 Logged Pharmacy 13:15 Dietary Evaluation Review Comments: Patient previously CCHO-60, may improve dietary compliance by having a CCHO-75 diet. Left BKA stump improving on antibiotics; abscess drained. Requires enhanced nutrition for wound healing and blood sugar control. Diagnosis (PES): Increased nutrient needs (protein) related to wound healing as evidenced by BKA stump and recommendation for specialized supplementation. Intervention: Advance diet to CCHO-75. Encourage adherence to blood sugar control to promote wound healing. Provide Giorgio BID to support tissue repair and healing. Monitoring/Evaluation: Monitor PO intake and blood glucose levels. Assess wound healing progress and tolerance to diet. Reassess PRN based on clinical status. Expected Outcomes/Goals: healed wound Visit Coding STANDARD RES Billing Provider: KENNEY KIM DO Date of Service if different f: Oct 29, 2025 Common Visit Codes: [id number] INP/OBS CARE(MOD) ANIVAL COSBY RESIDENT Oct 29, 2025 13:43 KENNEY KIM DO Nov 08, 2025 11:59
[2025-10-29] MEDS: ASPirin-EC 81 mg tab PO ONE (15:20)
[2025-10-29] MEDS: VANCOMYCIN 1GM/250ML KIT 250 ML IV SCH (15:40)
[2025-10-29] MEDS: MORPHINE SULFATE INJ 2 MG/ml SYRG IV PRN (19:06)
[2025-10-30] VITALS (7 sets, daily range): BP systolic 98–138; BP diastolic 61–98; PULSE 69–89; RESP 17–20; TEMP 97.2–98; O2SAT 94–99
[2025-10-30] MEDS: HYDROcodone-ACET 10/325MG TAB PO PRN (01:39)
[2025-10-30 07:17] LABS: Hemoglobin 8.9 g/dL (13.5-17.5); Mean Corpuscular Volume 83.5 fL (80.0-100.0)
[2025-10-30 07:19] LABS: Hematocrit 26.8 % (41.0-53.0); Mean Corpuscular Hemoglobin 27.8 pg (28.0-32.0); Nucleated Red Blood Cells % 0.1 %
[2025-10-30 07:24] LABS: Anion Gap 9 (5-15); Carbon Dioxide 23 mmol/L (20-31); Chloride 102 mmol/L (98-107); Potassium 4.5 mmol/L (3.5-5.1)
[2025-10-30 07:29] LABS: Calcium 9.4 mg/dL (8.7-10.4)
[2025-10-30 07:30] LABS: Sodium 134 mmol/L (136-145)
[2025-10-30 07:31] LABS: BUN/Creatinine Ratio 12.9 (10.0-20.0); Blood Urea Nitrogen 17 mg/dL (9-23)
[2025-10-30 07:32] LABS: Glucose 209 mg/dL (74-106)
[2025-10-30] MEDS: INSULIN LISPRO (HUMAN) 100 UNITS/ML ML SC SCH (08:30)
[2025-10-30] MEDS: ASPirin-EC 81 mg tab PO SCH (09:43)
[2025-10-30] MEDS ORDERED: ENOXAPARIN SOD 30 MG/0.3 ML SYRINGE SC SCH (10:00)
--- NOTE | 2025-10-30 13:08 | DVHPNRES ---
Progress Note Date Seen: Oct 30, 2025 Resident Creating Document: OLYA MCGOWAN RESIDENT Medical Necessity Reason Pt with a Central, PICC or Fol: No Subjective Review of Systems Mr. Marcus is a 45-year-old male with past medical history of HTN, CKD, type diabetes mellitus, Charcot Joint s/p left BKA in 2017 at [facility], who came to ER with a complaint of left lower extremity stump swelling, erythematous, and open wound with drainage for a week. He denied recent history of trauma, fall, fever, nausea, vomiting, headache, dyspnea, shortness of breath, abdominal pain, dysuria or any focal weakness. Patient utilizes wheelchair and occasional walker for ambulation at home. On evaluation in the ED, the patient was afebrile, normocardic, normotensive, saturating adequately on room air. Surgery on board and recommended no surgical intervention at this time and continue medical management. Past medical history: As above Surgical history: Left BKA 2017 Family history: Nothing contributory Personal history: Denies any EtOH or alcohol use Allergy: No known allergy PCP: Dr. Betancourt. Patient seen and evaluated in bedside today. Patient denies any acute distress. Positive for MRSA and started vancomycin, no side effects reported by the patient. Objective vital signs Vital Sign Date Time Temp Pulse Resp B/P (MAP) Pulse Ox O2 Delivery O2 Flow Rate FiO2 10/30/25 09:44 72 114/61 10/30/25 08:50 98.0 18 98 98.0 10/29/25 20:00 Room Air* 0 21 Total Intake and Output 10/29/25 10/29/25 10/30/25 15:00 23:00 07:00 Intake Total 1700 ml 1000 ml Output Total 400 ml 900 ml Balance 1300 ml 100 ml medications Current Medications Medications Dose Ordered Sig/Danilo Route Start Time Stop Time Status Last Admin Dose Admin Atorvastatin Calcium 40 mg HS PO 10/27/25 22:00 10/29/25 21:52 40 MG Ticagrelor 90 mg BID PO 10/27/25 22:00 10/30/25 09:41 90 MG Gabapentin 400 mg BID PO 10/27/25 22:00 10/30/25 09:42 400 MG Nifedipine 90 mg DAILY PO 10/28/25 10:00 10/30/25 09:43 90 MG Diagnostic Test (Pha) 1 strip ACHS 10/27/25 17:00 10/30/25 11:45 1 STRIP Insulin Human Regular ACHS SC 10/27/25 17:00 10/30/25 06:52 4 UNITS Dextrose 50 ml UD PRN IV 10/27/25 14:45 Ondansetron HCl 4 mg Q4HP PRN IV 10/27/25 14:45 Acetaminophen 650 mg Q6HP PRN PO 10/27/25 14:45 Ceftriaxone Sodium 50 ml @ 100 mls/hr DAILY@09 IV 10/28/25 09:00 10/30/25 09:30 100 MLS/HR Sertraline HCl 25 mg DAILY PO 10/29/25 10:00 10/30/25 09:41 25 MG Losartan Potassium 50 mg DAILY PO 10/29/25 10:00 10/30/25 09:42 50 MG Carvedilol 6.25 mg Q12HR PO 10/28/25 22:00 10/30/25 09:44 6.25 MG Insulin Glargine 10 units HS SC 10/28/25 22:00 10/29/25 22:00 10 UNITS Heparin Sodium (Porcine) 5,000 units Q12HR SC 10/28/25 22:00 10/30/25 09:53 5,000 UNITS Vancomycin HCl 0 ml @ 0 mls/hr PER PHARMACY IV 10/29/25 13:15 Aspirin 81 mg DAILY PO 10/30/25 10:00 10/30/25 09:43 81 MG Acetaminophen/ Hydrocodone Bitart 1 tab Q6HP PRN PO 10/29/25 18:30 10/30/25 11:45 1 TAB Morphine Sulfate 2 mg Q4HPRN PRN IV 10/29/25 18:30 10/30/25 03:06 2 MG Ergocalciferol 50,000 unit Q7D PO 10/30/25 07:45 Insulin Human Lispro 5 units AC SC 10/30/25 08:30 Examination GEN: Age-appropriate male in no acute distress. Alert. HEENT: Normocephalic atraumatic. Moist mucous membranes. Anicteric sclerae. CV: RRR Respiratory: CTAB ABD: Soft. Nontender nondistended Left BKA stump: There is a approximately 1.5 cm healing stage of wound at the tip of the left BKA stump without fluctuance or drainage. Pulses 2+ bilateral lower extremity. laboratory and microbiology Laboratory Tests 10/30/25 06:04 Test 10/30/25 06:04 Range/Units Serum Glucose 209 H 74-106 mg/dL Microbiology Date/Time Source Procedure Growth Status 10/27/25 17:23 Nose MRSA Screen - Final Complete 10/27/25 12:36 Blood Blood Culture - Preliminary NO GROWTH AFTER 72 HOURS OF INCUBATION. Resulted Problem List/Assessment/Plan Problem List/Assessment/Plan Left BKA stump cellulitis Rule out osteomyelitis History of Charcot joint status post left BKA Lactic acid 2.0 CT left lower extremity stump: Do soft tissue ulceration along the posterior aspect of the distal stem with underlying phlegmon. Blood culture preliminary x 2 shows no growth Wound Culture preliminary left BKA stump: MRSA positive Started empiric antibiotic ceftriaxone and vancomycin Monitor labs Pain management Surgery consult appreciated and recommended continue antibiotic no surgical intervention at this time. Type 2 diabetes mellitus with hyperglycemia Diabetes mellitus with neuropathy Hyperlipidemia with diabetes Gabapentin Atorvastatin Hemoglobin A1c 8.4 Basal bolus insulin Insulin sliding scale Monitor blood sugar MARILYNN and CKD likely vasomotor nephropathy Hypertensive heart disease with possible systolic/diastolic heart failure Coronary Artery Disease s/p PCI 4 CRISTA in 04/20/2025 Hyponatremia Blood pressure control targeted less than 130/80 Aspirin Ticagrelor Nifedipine Losartan Carvedilol Hyponatremia Hyperkalemia Avoid nephrotoxic drugs IVF BMP Anemia of chronic disease Hemoglobin 8.5, HCT 25.9, MCV 84.1, RDW 15.0-on admission No active signs symptoms of bleeding Possible major depressive disorder Sertraline Thrombocytosis likely hemoconcentration/reactive Initial CBC history of platelet 465 CBC Vitamin-D deficiency Serum vitamin-D level 10.6 Vitamin-D 95888 units Q weekly Diet: Carbohydrate consistent DVT prophylaxis: Heparin Goals of care discussed. 23 minute spent with patient. Code status. Case discussed with Dr. Kim Plan discussed with: Patient, Other (Nurse) My Orders My Orders Orders - OLYA MCGOWAN RESIDENT Procedure Category Date Status Time Insulin Lispro PHA 10/30/25 In Process (Human) (Humalog) 08:30 Dietary Evaluation Review Comments: Patient previously CCHO-60, may improve dietary compliance by having a CCHO-75 diet. Left BKA stump improving on antibiotics; abscess drained. Requires enhanced nutrition for wound healing and blood sugar control. Diagnosis (PES): Increased nutrient needs (protein) related to wound healing as evidenced by BKA stump and recommendation for specialized supplementation. Intervention: Advance diet to CCHO-75. Encourage adherence to blood sugar control to promote wound healing. Provide Giorgio BID to support tissue repair and healing. Monitoring/Evaluation: Monitor PO intake and blood glucose levels. Assess wound healing progress and tolerance to diet. Reassess PRN based on clinical status. Expected Outcomes/Goals: healed wound Visit Coding STANDARD RES Billing Provider: KENNEY IKM DO Date of Service if different f: Oct 30, 2025 Common Visit Codes: [id number] INP/OBS CARE(MOD) Secondary Visit Codes: [id number] CARE PLAN 30 MINUTES OLYA MCGOWAN RESIDENT Oct 30, 2025 13:08 KENNEY KIM DO Nov 08, 2025 11:59
[2025-10-30] MEDS: MORPHINE SULFATE 4 MG/ML SYR/VIAL IV PRN (15:13)
[2025-10-30] MEDS: ERGOCALCIFEROL 50,000 UNIT(1.25MG) CAP PO SCH (17:16)
[2025-10-31 04:00] VITALS: BP 123/80; PULSE 83; RESP 16; TEMP 97.9; O2SAT 100
[2025-10-31 06:00] LABS: Nucleated Red Blood Cells % 0.1 %
[2025-10-31 06:03] LABS: Anion Gap 8 (5-15); Carbon Dioxide 23 mmol/L (20-31); Chloride 103 mmol/L (98-107); Hematocrit 23.4 % (41.0-53.0); Hemoglobin 7.7 g/dL (13.5-17.5); Mean Corpuscular Hemoglobin 27.5 pg (28.0-32.0); Mean Corpuscular Volume 83.3 fL (80.0-100.0); Potassium 4.5 mmol/L (3.5-5.1)
[2025-10-31 06:07] LABS: Calcium 8.5 mg/dL (8.7-10.4); Sodium 134 mmol/L (136-145)
[2025-10-31 06:09] LABS: BUN/Creatinine Ratio 15.3 (10.0-20.0); Blood Urea Nitrogen 25 mg/dL (9-23); Glucose 166 mg/dL (74-106)
[2025-10-31 08:00] VITALS: PULSE 85; RESP 18; O2SAT 96
[2025-10-31 09:00] VITALS: BP 110/72; PULSE 85; RESP 18; TEMP 98.7; O2SAT 96
[2025-10-31] MEDS: HYDROmorphone HCL 2 MG/ML VL/or syr IV PRN (11:26)
[2025-10-31 13:00] VITALS: BP 119/82; PULSE 85; RESP 19; TEMP 98.9; O2SAT 98
[2025-10-31] MEDS ORDERED: ERGO1CAP23 PO (14:49)
[2025-10-31] MEDS ORDERED: BACDST PO (14:49)
--- NOTE | 2025-10-31 16:19 | DVHDSRES ---
Discharge Summary Date of Admission Resident Creating Document: OLYA MCGOWAN RESIDENT Oct 27, 2025 at 14:42 Date of Discharge: Oct 31, 2025 Labs/Diagnostic Data: Laboratory Results Test 10/31/25 11:30 10/31/25 05:10 10/29/25 04:28 10/28/25 06:20 POC Glucose 179 mg/dl (70-106) White Blood Count 5.9 10^3/uL (4.4-10.8) Red Blood Count 2.81 10^6/uL (4.5-5.90) Hemoglobin 7.7 g/dL (13.5-17.5) Hematocrit 23.4 % (41.0-53.0) Mean Corpuscular Volume 83.3 fL (80.0-100.0) Mean Corpuscular Hemoglobin 27.5 pg (28.0-32.0) Mean Corpuscular Hemoglobin Concent 33.1 g/dL (32.0-36.0) Red Cell Distribution Width 14.9 % (11.8-14.3) Platelet Count 453 10^3/uL (140-450) Mean Platelet Volume 7.5 fL (6.9-10.8) Neutrophils (%) (Auto) 58.5 % (37.0-80.0) Lymphocytes (%) (Auto) 21.5 % (10.0-50.0) Monocytes (%) (Auto) 11.3 % (0.0-12.0) Eosinophils (%) (Auto) 7.5 % (0.0-7.0) Basophils (%) (Auto) 1.2 % (0.0-2.0) Neutrophils # (Auto) 3.4 10 ^3/uL (1.6-8.6) Lymphocytes # (Auto) 1.3 10 ^3/uL (0.4-5.4) Monocytes # (Auto) 0.7 10 ^3/uL (0-1.3) Eosinophils # (Auto) 0.4 10 ^3/uL (0-0.8) Basophils # (Auto) 0.1 10 ^3/uL (0-0.2) Nucleated Red Blood Cells 0.1 % Sodium Level 134 mmol/L (136-145) Potassium Level 4.5 mmol/L (3.5-5.1) Chloride Level 103 mmol/L (98-107) Carbon Dioxide Level 23 mmol/L (20-31) Anion Gap 8 (5-15) Blood Urea Nitrogen 25 mg/dL (9-23) Creatinine 1.63 mg/dL (0.700-1.30) Glomerular Filtration Rate Calc 52 mL/min (>90) BUN/Creatinine Ratio 15.3 (10.0-20.0) Serum Glucose 166 mg/dL (74-106) Calcium Level 8.5 mg/dL (8.7-10.4) Random Vancomycin Level 14.8 ug/mL (5-10) Phosphorus Level 4.7 mg/dL (2.4-5.1) Magnesium Level 2.1 mg/dL (1.6-2.6) Total Bilirubin 0.2 mg/dL (0.2-1.0) Aspartate Amino Transferase (AST) 11 U/L (13-40) Alanine Aminotransferase (ALT) < 9 U/L (7-40) Alkaline Phosphatase 67 U/L (46-116) Total Protein 7.4 g/dL (5.7-8.2) Albumin 3.9 g/dL (3.2-4.8) Vitamin D 25-Hydroxy 10.5 ng/mL (30.0-100) Hemoglobin A1c 8.4 % A1C (<5.7) Test 10/27/25 12:27 Lactic Acid Level 2.0 mmol/L (0.4-2.0) Other Laboratory Tests 10/31/25 05:10 Brief Hx & Hospital Course: Mr. Marcus is a 45-year-old male with past medical history of HTN, CKD, type diabetes mellitus, Charcot Joint s/p left BKA in 2017 at [facility], who came to ER with a complaint of left lower extremity stump swelling, erythematous, and open wound with drainage for a week. He denied recent history of trauma, fall, fever, nausea, vomiting, headache, dyspnea, shortness of breath, abdominal pain, dysuria or any focal weakness. Patient utilizes wheelchair and occasional walker for ambulation at home. On evaluation in the ED, the patient was afebrile, normocardic, normotensive, saturating adequately on room air. Surgery on board and recommended no surgical intervention at this time and continue medical management. Past medical history: As above Surgical history: Left BKA 2017 Family history: Nothing contributory Personal history: Denies any EtOH or alcohol use Allergy: No known allergy PCP: Dr. Betancourt. Hospital course: Patient admitted due to left BKA stump cellulitis and ruled out osteomyelitis. During admission, CT left lower extremity stump- soft tissue ulceration along the posterior aspect of the distal stem with underlying phlegmon. Wound culture showed MRSA growth and treated with conservatively IV antibiotic. Culture sensitivity shows sensitive to Bactrim. Surgery consult appreciated and recommended continue antibiotic no surgical intervention at this time. Lab shows no leukocytosis during discharge and during examination on 10/31/2025, patient denies any fever, cough, SOB, headache, abdominal pain, dysuria or any focal weakness. During hospitalization, patient treated both acute and chronic medical condition. Patient advised to continue oral antibiotic total 14 days and follow-up outpatient continuity clinic 11/01/2025. Patient is hemodynamically stable for discharge. Patient has received maximum benefit from inpatient treatment. Time was given to answer patient's questions and concerns in layman terms and explained by RN. Patient verbalized understanding and agreed with treatment and follow-up. Patient was recommended to return to ER if he experiences any worsening symptoms not limited to current symptoms. Follow-up with PCP and outpatient continuity clinic 11/01/2025 within week after discharge. Medications sent to the pharmacy, patient advised to resume home medication. Physical examination Constitutional: No: Fever, Chills, Sweats, Weakness, Malaise, Other Eyes: No: Pain, Vision change, Conjunctivae inflammation, Eyelid inflammation, Other, Redness ENT: No: Ear pain, Ear discharge, Nose pain, Nose discharge, Nose congestion, Mouth pain, Mouth swelling, Throat pain, Throat swelling, Other Respiratory: Shortness of breath; No: Cough, Dry, SOB with excertion, Wheezing, Hemoptysis, Pleuritic Pain, Sputum, Wheezing, Other Cardiovascular: No: Chest Pain, Palpitations, Orthopnea, Paroxysmal Noc. Dyspnea, Edema, Lt Headedness, Other Gastrointestinal: No: Nausea, Vomiting, Abdominal Pain, Diarrhea, Constipation, Melena, Hematochezia, Other Genitourinary: No Dysuria, No Frequency, No Incontinence, No Hematuria, No Retention, No Other Musculoskeletal: No: other, neck pain, shoulder pain, arm pain, back pain, hand pain, left BKA. Skin: No: Rash, Lesions, Jaundice, Bruising, Other Neurological: No: Weakness, Numbness, Incoordination, Change in speech, Confusion, Seizures, Other Case discussed with patient, nurse, Dr. Funez. More than 23 minute spent. Operations or Procedures ORDERING PHYSICIAN: AKCY POTTER PROCEDURE(s): LE1CR - LT LOWER EXTREMITY W CONTRAS REASON: left stump swelling ORDER NUMBER(s): [id number], ACCESSION NUMBER(s): [id number] EXAM: CT LT LOWER EXTREMITY W CONTRAS INDICATION: left stump swelling TECHNIQUE: Axial images of left lower extremity with contrast have been obtained along with coronal and sagittal reformatted images. All CT scans at this facility use dose modulation, iterative reconstruction, and/or weight based dosing when appropriate to reduce radiation dose to as low as reasonably achievable. COMPARISON: XY L KNEE 2V XRAY on DOS: 10/19/25 FINDINGS: BONES: Wrhnd-[id number]-zyow amputation area deep soft tissue ulceration along the posterior aspect of the distal stump with underlying phlegmon tracking to the osseous distal cortical surface of the distal stump. Question subsequent osseous erosion in the area of concern which may reflect osteomyelitis (series 607, image 106). Vascular calcifications. MUSCLES: Fat containing left inguinal hernia. Fatty atrophy along the proximal calf musculature. JOINT SPACES: Small left knee joint effusion. OTHER: Minimal circumferential bladder wall thickening. Likely reactive left inguinal lymph nodes. IMPRESSION: 1. Deep soft tissue ulceration along the posterior aspect of the distal stump with underlying phlegmon tracking to the osseous distal cortical surface of the distal stump. 2. Question subsequent osseous erosion in the area of concern which may reflect osteomyelitis. ATED BY: JON HENRY MD DICTATED DATE/TIME: 10/27/25 6901 Condition at Discharge: Stable Final Diagnosis/Problems List Left BKA stump cellulitis. Ruled out osteomyelitis History of Charcot joint status post left BKA Type 2 diabetes mellitus with hyperglycemia Diabetes mellitus with neuropathy Thrombocytosis likely hemoconcentration/reactive Possible major depressive disorder Hyperlipidemia with diabetes MARILYNN and CKD likely vasomotor nephropathy Hypertensive heart disease with possible systolic/diastolic heart failure Coronary Artery Disease s/p PCI 4 [facility]STA in 04/20/2025 Anemia of chronic disease Vitamin-D deficiency Discharge Disposition: Home Discharge Instruct/Medications Diet: Consistent carbohydrate Activity: No Restrictions, As Tolerated Follow Up/Referral: PCP Outpatient continuity clinic Friday morning within 2 weeks after discharge. Physical therapy. Medications: Please continue antibiotic as directed. Scheduled Ergocalciferol (Vitamin D 73150 Unit), 50,000 UNIT PO weekly Sulfamethoxazole W/Trimethopri (Bactrim Ds Tablet), 1 TAB PO BID Discharge Statement: "Patient was advised to return to the ER or call 911 if any headaches, dizziness, shortness of breath, chest pain, abdominal pain, bleeding, fevers, or worsening of medical condition. Patient was counseled about treatment plan, medications, possible side effects, patientverbalized understanding. All questions were answered to the best of my ability. This discharge took greater then 30 minutes in planning, reviewing documentation, counseling the patient, and discussing with other team members." ASSESSMENT ASSESSMENT Assessment Left BKA stump cellulitis. Visit Coding STANDARD RES Billing Provider: MIGEL FUNEZ MD Date of Service if different f: Oct 31, 2025 Common Visit Codes: 94545-VHQ/OBS DISCH DAY >30min OLYA MCGOWAN RESIDENT Oct 31, 2025 16:19 MIGEL FUNEZ MD Nov 04, 2025 23:45
[2025-10-31 16:55] VITALS: BP 119/82; PULSE 85; RESP 19; TEMP 98.9; O2SAT 98
== END 2025-10-31 17:38 | disposition home or self-care (01) | DRG 349 ==
LOC: ER 10:46 → OVERFLOW 14:42 → WEST WING 16:54 → CENTRAL 10-29 15:56
PROVIDERS: ADMIT Student in an Organized Health Care Education/Training Program; ATTEND Student in an Organized Health Care Education/Training Program
DX: T87.44 Infection of amputation stump, left lower extremity (principal); N17.0 Acute kidney failure with tubular necrosis; D63.8 Anemia in other chronic diseases classified elsewhere; E87.1 Hypo-osmolality and hyponatremia; I13.0 Hypertensive heart and chronic kidney disease with heart failure and stage 1 through stage 4 chronic kidney disease, or unspecified chronic kidney disease; I50.22 Chronic systolic (congestive) heart failure; E11.22 Type 2 diabetes mellitus with diabetic chronic kidney disease; D75.839 Thrombocytosis, unspecified; N18.9 Chronic kidney disease, unspecified; F32.9 Major depressive disorder, single episode, unspecified; E11.40 Type 2 diabetes mellitus with diabetic neuropathy, unspecified; E11.65 Type 2 diabetes mellitus with hyperglycemia; E55.9 Vitamin D deficiency, unspecified; E87.5 Hyperkalemia; E78.5 Hyperlipidemia, unspecified; I25.10 Atherosclerotic heart disease of native coronary artery without angina pectoris; I25.2 Old myocardial infarction; Z89.512 Acquired absence of left leg below knee; Z79.899 Other long term (current) drug therapy; Z82.0 Family history of epilepsy and other diseases of the nervous system; Z95.5 Presence of coronary angioplasty implant and graft; Y84.8 Other medical procedures as the cause of abnormal reaction of the patient, or of later complication, without mention of misadventure at the time of the procedure; Y92.89 Other specified places as the place of occurrence of the external cause
CPT/HCPCS: 36415; 73701; 80048; 80053; 80202; 82306; 82962; 83036; 83605; 83735; 84100; 85025; 87040; 87077; 87081; 87186; 87205; 96365; 96375; G0378; J1815; J1885; J3490